=== PATIENT | male | born 1985 | race Caucasian/White ===

== ENCOUNTER 2018-06-06 06:12 | Inpatient (IN) ==
--- NOTE | 2018-05-28 10:05 | EKG Report ---
Test Performed on : 05/28/2018 10:02:58 AM Test Reason : pat Blood Pressure : / mmHG Vent. Rate : 064 BPM Atrial Rate : 064 BPM P-R Int : 128 ms QRS Dur : 086 ms QT Int : 392 ms P-R-T Axes : 051 056 045 degrees QTc Int : 404 ms Normal sinus rhythm. Normal ECG No previous ECGs available Confirmed by Anny STANFORD, Mark Mcmahan ([id number]) on 05/29/2018 7:09:51 AM
[2018-05-28 10:42] LABS: HEMATOCRIT 44.1 % (42.0-52.0); HEMOGLOBIN 15.3 g/dL (14.0-18.0); MCH 29.4 PG (27-31); MCHC 34.7 g/dL (33-37); MCV 84.8 FL (81-99); MPV 10.1 FL (7.4-10.4); RBC 5.2 XMIL (4.7-6.1); RDW 13.8 % (11.5-14.5); WBC 8.02 X1000 (4.8-10.8)
[2018-05-28 11:20] LABS: AGAP 13; BUN 11 mg/dL (8-22); CALCIUM 10.1 mg/dL (8.8-10.2); CHLORIDE 101 mmol/L (98-107); COSMO 280; CREATININE 0.7 mg/dL (0.7-1.2); ESTIMATED GFR > 60; GLUCOSE 89 mg/dL (70-104); POTASSIUM 4.4 mmol/L (3.5-5.1); SODIUM 141 mmol/L (136-145); TCO2 27 mmol/L (25-35)
[2018-05-28 13:07] LABS: FREE T4 1.28 ng/dL (0.93-1.70); T4 7.82 ug/dL (4.60-12.00); TSH 0.65 uIUmL (0.27-4.20)
[2018-06-06] MEDS ORDERED: REGLAN ONE (06:36)
[2018-06-06] MEDS ORDERED: PEPCID ONE (06:36)
[2018-06-06] MEDS ORDERED: LR 1,000 ML ONE (06:36)
[2018-06-06] MEDS ORDERED: NORCURON ONE (07:31)
[2018-06-06] MEDS ORDERED: QUELICIN (DOSE) ONE (07:31)
[2018-06-06] MEDS ORDERED: XYLOCAINE-MPF 2% ONE (07:31)
[2018-06-06] MEDS ORDERED: SODIUM CHLORIDE 0.9% 10 ML ONE (07:31)
[2018-06-06] MEDS ORDERED: SENSORCAINE-MPF 0.5%/EPI 1:200,000 ONE (07:32)
[2018-06-06] MEDS ORDERED: FENTANYL ONE ×2 (07:33→09:04)
[2018-06-06] MEDS ORDERED: DIPRIVAN 1% ONE (07:33)
[2018-06-06] MEDS ORDERED: ROBINUL ONE (09:20)
[2018-06-06] MEDS ORDERED: NS 1,000 ML ONE (10:04)
[2018-06-06] MEDS ORDERED: ZOFRAN IV PRN (10:58)
[2018-06-06] MEDS ORDERED: NORCO-10 PO PRN (10:58)
--- NOTE | 2018-06-06 11:27 | OPERATIVE NOTE ---
PROCEDURE DATE: 06/06/2018 PROCEDURE: Subtotal thyroidectomy. SURGEON: Osmany Lyman MD. [employer] DIPPING MACHINE OPERATOR: Сергей Dale RN. PREOPERATIVE DIAGNOSIS: Multinodular goiter. 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 DESCRIPTION OF PROCEDURE: Satisfactory general endotracheal anesthesia was achieved. The anterior neck was prepped and draped in a sterile fashion. We marked the skin in the midline. Then, 5 cm on each side of the midline. We used a silk suture to kaden the skin. We anesthetized the skin with 0.5% Marcaine with epinephrine. We then made an incision 5 cm on each side of the midline. We carried our incision through the platysma. We developed a subplatysmal plane superiorly to the thyroid prominence, and inferiorly to the sternal notch. We placed Gelpi retractors on each side. We then found the cervical fascia over the midline of the trachea and divided it. We then dissected the large right thyroid lobe mass out of its fossa retracting the muscle laterally. We then did isolated the superior pole and used the LigaSure to divide the superior pole vessels. We then rolled a mass medially, and dissected down to the trachea inferiorly and then dissected the tissue off the lateral and posterior aspect of the nodule. We did identify what we thought was probably the superior parathyroid. We also identified the recurrent nerve and avoided it. After dissecting and staying close to the gland we came onto the trachea and then took the isthmus off the trachea as well. We divided it to go ahead and send the right side for frozen section. We then turned our attention to the left-side and retracted the muscle on the left side. We palpated the mass in the left superior pole. We then isolated the superior pole vessels, and again ligated them with the LigaSure . We then rolled the superior pole out of its fossa, and used the ligature to amputate the superior pole. We never really got posterior to where we would bother the recurrent nerve or the parathyroids on the left side. We sent both for frozen section. We got word back that the right side was probably a follicular adenoma to the left side which was probably an oncocytic neoplasm of uncertain potential, but completely excised so I chose not to take any more thyroid tissue. A Juan drain was placed within the wound after had satisfactory hemostasis was achieved. We closed the cervical fascia with 3-0 Polysorb in the midline. We closed the platysma with interrupted 3-0 Polysorb's. We closed the skin with 4-0 Polysorb subcuticular stitch. A 2-0 silk was used to secure the drain at the skin level. Sterile dressing was applied. He tolerated it well. He was sent to the recovery room in satisfactory condition. cc: Osmany Lyman MD MTDD
[2018-06-06] MEDS: DILAUDID IV PRN ×3 (12:58→21:43)
[2018-06-06] MEDS: NS 1,000 ML IV SCH ×2 (18:17→21:43)
--- NOTE | 2018-06-06 19:51 | GENERAL SURGERY PROGRESS NOTE ---
DATE: 06/06/2018 Mr. Norwood is doing well. He is sitting up, swallowing easily. His voice is normal. No significant drainage. We will check his labs in the morning. cc: Osmany Lyman MD
[2018-06-06] MEDS: PERIDEX MT SCH (21:43)
[2018-06-07] MEDS: PERIDEX MT SCH (07:36)
[2018-06-07] MEDS ORDERED: PRILOSEC PO SCH (09:00)
[2018-06-07 09:56] VITALS: BP 114/63
--- NOTE | 2018-06-07 10:02 | GENERAL SURGERY PROGRESS NOTE ---
DATE: 06/07/2018 It is 9:30 in the morning and Mr. Norwood is doing well. His Chvostek's sign is negative. He has no perioral numbness. His calcium is 8.4. He has no significant drainage. His neck is not swollen. The plan will be to remove his drain today and I will allow him to go home. He will return to see me on the . Wound care and activity were discussed. cc: Osmany Lyman MD
== END 2018-06-07 11:14 | disposition home or self-care (01) | DRG 627 ==
LOC: OR 06:12 → 4N 10:48
PROVIDERS: ADMIT Surgery; ATTEND Surgery
PROC: GE.THYR (2018-06-06 07:58)
CPT/HCPCS: 80048; 82310; 84436; 84439; 84443; 84480; 85027; 88307; 88331; 93005; 93010; 94761; 94799; A9270; J0330; J1170; J3010; J7030; J7120